=== PATIENT | female | born 1945 | race Caucasian/White ===

== ENCOUNTER 2019-08-22 13:45 | Outpatient (RCR) | payer MEDICARE, SELFPAY ==
--- NOTE | 2019-07-04 12:00 | PT.OIE ---
Current Diagnoses Mixed incontinence (07/04/19) Unspecified urinary incontinence (07/04/19) Provider Visit Care Team Role Provider Type Zulema Muhammad MD Primary Care Provider Non-Staff Specialty: Family Practice Address: [address] [place], [address] Email: BHARATH Garvin Attending Provider Non-Staff Specialty: Nursing Address: [address] [place] [address], [id number] Email: Physical Therapy Initial Evaluation PT-OP-A Visit Information Start: 07/04/19 09:45 Freq: Status: Active Protocol: Document 07/04/19 09:45 AMB (Rec: 07/04/19 10:07 AMB [email or web address]) Out-Patient Physical Therapy Visit Information Visit Information Visit Type Initial Evaluation Visit Start Time 09:47 Visit Stop Time 10:30 Total Visit Minutes 43 Visit Number 1 PT-OP-B Current Condition Start: 07/04/19 09:45 Freq: Status: Active Protocol: Document 07/04/19 10:30 AMB (Rec: 07/04/19 11:43 AMB [email or web address]) Current Condition History of Current Condition Onset Date 1.5 years ago Current Complaints leaking urine History of Current Condition Alejandra presents to physical therapy with mixed incontinence. Stress urinary incontience with leaking with sex, positional changes, sneezes, and walking and urgency with triggers like running water and walking to the bathroom. Prior Functional Status Baseline Function- ADL's Independent Baseline Function- Mobility Independent Current Functional Impairments (Reported) Functional Limitations- ADL's leaking with activity and urge Personal Factors Other Personal Factors That May Effect history of small strokes that Therapy/Recovery affect memory per patient, history of uterine cancer with intravaginal radiation and hysterectomy PT-OP-C Subjective Start: 07/04/19 09:45 Freq: Status: Active Protocol: Document 07/04/19 10:30 AMB (Rec: 07/04/19 11:43 AMB [email or web address]) Patient Questionnaires Pelvic Pain and Urgency/Frequency Patient Symptom Scale Pelvic Pain Score 16 PT-OP-I Pelvic Floor Start: 07/04/19 09:45 Freq: Status: Active Protocol: Document 07/04/19 09:45 AMB (Rec: 07/10/19 10:08 AMB [email or web address]) Pelvic Floor Assessment Urine Pelvic Floor Surgery Yes: hysterecotomy Urinary Symptoms Urge Sensation Leakage Size Medium Leakage Cause Cough Sneeze Urge Other Leakage Causes intercourse Voiding Frequency every 2 hours Nocturia 2 Urine Pad Type Panty Liner Pelvic Clock Pelvic Clock 12-3 Atrophy Pelvic Clock 3-6 Atrophy Pelvic Clock 6-9 Atrophy Pelvic Clock 9-12 Atrophy Prolapse Cystocele Grade 2 Contraction Ability Voluntary Contraction Weak Voluntary Relaxation Weak Manual Muscle Testing Left 1 Manual Muscle Testing Right 1 Manual Muscle Testing Anterior 1 Manual Muscle Testing Posterior 2 Muscle Endurance (Seconds) 4 Number of Quick Contractions In 10 3 Seconds PT-OP-T Assessment and Plan Start: 07/04/19 09:45 Freq: Status: Active Protocol: Document 07/04/19 09:45 AMB (Rec: 07/10/19 10:08 AMB [email or web address]) Physical Therapy Assessment Rehab Potential Rehabilitation Potential Good Evaluation Complexity Number of Personal Factors/Comorbidities 1-2 Number of Body Systems Impaired 1-2 Clinical Presentation at Evaluation Stable Impairments Impairments Functional Activities Strength Goals Two Impairment strength Short Term Goal (STG) Alejandra will increase her pelvic floor strength in all planes to 3/5. STG Duration 5 weeks Alf Goal (LTG) Alejandra will contract her pelvic floor for 10 seconds in standing without compensation to help avoid leaking. LTG Duration 10 weeks One Impairment incontinence Short Term Goal (STG) Alejandra will walk calmly to the bathroom without leaking. STG Duration 5 weeks Alf Goal (LTG) Alejandra will cough while standing without leaking. LTG Duration 10 weeks Assessment Summary Assessment Alejandra attends physical therapy with worsening mixed urinary incontinence symptoms for the past 6 months. 6 years ago she had uterine cancer with radiation and many years ago had 2 vaginal deliveries with episiotomy, but only developed symptoms recently. While she does show signs of cystocele, she does not complain of feeling the prolapse, but does have symptoms of both urge incontinence and stress incontinence. She was able to contract pelvic floor, but weakly. She will benefit from PT for strengthening of her pelvic floor and urge suppression techniques. Physical Therapy Plan Frequency and Duration Frequency of Treatment 1x/Week Duration of Treatment 10 weeks Plan of Care Start Date 07/04/19 Plan of Care End Date 09/12/19 Therapeutic Interventions Therapeutic Interventions Home Exercise Program Manual Therapy Neuromuscular Re-education Self-Care/Home Management Therapeutic Activities Therapeutic Exercises Modalities Biofeedback Electric Stimulation Next Visit Focus/Plan Next Note Type Treatment Note Next Visit Plan Begin with sEMG, urge reduction techniques, NMES if needed
--- NOTE | 2019-07-04 12:01 | PT.OPPOC ---
Current Diagnoses Mixed incontinence (07/04/19) Unspecified urinary incontinence (07/04/19) Provider Visit Care Team Role Provider Type Zulema Muhammad MD Primary Care Provider Non-Staff Specialty: Family Practice Address: [address] , [place], [address] Email: BHARATH Garvin Attending Provider Non-Staff Specialty: Nursing Address: [address] [place] [address], [id number] Email: Plan Of Care PT-OP-T Assessment and Plan Start: 07/04/19 09:45 Freq: Status: Active Protocol: Document 07/04/19 09:45 AMB (Rec: 07/10/19 10:08 AMB [email or web address]) Physical Therapy Assessment Rehab Potential Rehabilitation Potential Good Evaluation Complexity Number of Personal Factors/Comorbidities 1-2 Number of Body Systems Impaired 1-2 Clinical Presentation at Evaluation Stable Impairments Impairments Functional Activities Strength Goals Two Impairment strength Short Term Goal (STG) Alejandra will increase her pelvic floor strength in all planes to 3/5. STG Duration 5 weeks Fpc Goal (LTG) Alejandra will contract her pelvic floor for 10 seconds in standing without compensation to help avoid leaking. LTG Duration 10 weeks One Impairment incontinence Short Term Goal (STG) Alejandra will walk calmly to the bathroom without leaking. STG Duration 5 weeks Quality Control Chemist Goal (LTG) Alejandra will cough while standing without leaking. LTG Duration 10 weeks Assessment Summary Assessment Alejandra attends physical therapy with worsening mixed urinary incontinence symptoms for the past 6 months. 6 years ago she had uterine cancer with radiation and many years ago had 2 vaginal deliveries with episiotomy, but only developed symptoms recently. While she does show signs of cystocele, she does not complain of feeling the prolapse, but does have symptoms of both urge incontinence and stress incontinence. She was able to contract pelvic floor, but weakly. She will benefit from PT for strengthening of her pelvic floor and urge suppression techniques. Physical Therapy Plan Frequency and Duration Frequency of Treatment 1x/Week Duration of Treatment 10 weeks Plan of Care Start Date 07/04/19 Plan of Care End Date 09/12/19 Therapeutic Interventions Therapeutic Interventions Home Exercise Program Manual Therapy Neuromuscular Re-education Self-Care/Home Management Therapeutic Activities Therapeutic Exercises Modalities Biofeedback Electric Stimulation Next Visit Focus/Plan Next Note Type Treatment Note Next Visit Plan Begin with sEMG, urge reduction techniques, NMES if needed Plan of Care Dates Plan of Care Start Date 07/04/19 Plan of Care End Date 09/12/19 Please Sign and Return: I have reviewed this Plan of Care and certify that the skilled therapy services above are required to meet the patient?s needs. Physician Signature Date Printed Name and Credentials Clinical Instructor Signature Printed Name and Credentials
--- NOTE | 2019-07-11 16:37 | PT.OTN ---
Current Diagnoses Mixed incontinence (07/11/19) Unspecified urinary incontinence (07/11/19) Physical Therapy Treatment Note PT-OP-A Visit Information Start: 07/04/19 09:45 Freq: Status: Active Protocol: Document 07/11/19 09:45 AMB (Rec: 07/11/19 10:06 AMB [id number]) Out-Patient Physical Therapy Visit Information Visit Information Visit Type Treatment Note Visit Start Time 09:45 Visit Stop Time 10:25 Total Visit Minutes 40 Visit Number 2 PT-OP-B Current Condition Start: 07/04/19 09:45 Freq: Status: Active Protocol: Document 07/04/19 10:30 AMB (Rec: 07/04/19 11:43 AMB [email or web address]) Current Condition History of Current Condition Onset Date 1.5 years ago Current Complaints leaking urine History of Current Condition Alejandra presents to physical therapy with mixed incontinence. Stress urinary incontience with leaking with sex, positional changes, sneezes, and walking and urgency with triggers like running water and walking to the bathroom. Prior Functional Status Baseline Function- ADL's Independent Baseline Function- Mobility Independent Current Functional Impairments (Reported) Functional Limitations- ADL's leaking with activity and urge Personal Factors Other Personal Factors That May Effect history of small strokes that Therapy/Recovery affect memory per patient, history of uterine cancer with intravaginal radiation and hysterectomy PT-OP-C Subjective Start: 07/04/19 09:45 Freq: Status: Active Protocol: Document 07/11/19 09:45 AMB (Rec: 07/11/19 10:06 AMB [id number]) OP-PT Subjective Patient Comments Patient Comments Pt states it has been hard to do the exercises but she has been trying. PT-OP-I Pelvic Floor Start: 07/04/19 09:45 Freq: Status: Active Protocol: Document 07/04/19 09:45 AMB (Rec: 07/10/19 10:08 AMB [email or web address]) Pelvic Floor Assessment Urine Pelvic Floor Surgery Yes: hysterecotomy Urinary Symptoms Urge Sensation Leakage Size Medium Leakage Cause Cough Sneeze Urge Other Leakage Causes intercourse Voiding Frequency every 2 hours Nocturia 2 Urine Pad Type Panty Liner Pelvic Clock Pelvic Clock 12-3 Atrophy Pelvic Clock 3-6 Atrophy Pelvic Clock 6-9 Atrophy Pelvic Clock 9-12 Atrophy Prolapse Cystocele Grade 2 Contraction Ability Voluntary Contraction Weak Voluntary Relaxation Weak Manual Muscle Testing Left 1 Manual Muscle Testing Right 1 Manual Muscle Testing Anterior 1 Manual Muscle Testing Posterior 2 Muscle Endurance (Seconds) 4 Number of Quick Contractions In 10 3 Seconds PT-OP-Q Treatments Start: 07/04/19 09:45 Freq: Status: Active Protocol: Document 07/11/19 09:45 AMB (Rec: 07/12/19 16:37 AMB [email or web address]) Therapeutic Exercises Supine Exercises 1 Supine Exercise Name roll in Comments difficult Sitting Exercises 1 Sitting Exercise Name pelvic floor activation Comments without abs or gluteals Neuro Re-Education Treatment Other Activities 1 Details sEMG Comments in hooklying quick flicks and long holds PT-OP-T Assessment and Plan Start: 07/04/19 09:45 Freq: Status: Active Protocol: Document 07/11/19 09:45 AMB (Rec: 07/12/19 07:30 AMB [email or web address]) Physical Therapy Assessment Assessment Summary Assessment Alejandra did better with feedback today, either from the seat when she was sitting, or with biofeedback. Roll in was very difficult. Physical Therapy Plan Next Visit Focus/Plan Next Note Type Treatment Note Next Visit Plan Begin with sEMG, urge reduction techniques, NMES if needed
--- NOTE | 2019-07-20 09:59 | PT.OTN ---
Current Diagnoses Mixed incontinence (07/20/19) Unspecified urinary incontinence (07/20/19) Physical Therapy Treatment Note PT-OP-A Visit Information Start: 07/04/19 09:45 Freq: Status: Active Protocol: Document 07/20/19 09:15 AMB (Rec: 07/20/19 09:59 AMB [id number]) Out-Patient Physical Therapy Visit Information Visit Information Visit Type Treatment Note Visit Start Time 09:45 Visit Stop Time 10:25 Total Visit Minutes 40 Visit Number 3 PT-OP-B Current Condition Start: 07/04/19 09:45 Freq: Status: Active Protocol: Document 07/04/19 10:30 AMB (Rec: 07/04/19 11:43 AMB [email or web address]) Current Condition History of Current Condition Onset Date 1.5 years ago Current Complaints leaking urine History of Current Condition Alejandra presents to physical therapy with mixed incontinence. Stress urinary incontience with leaking with sex, positional changes, sneezes, and walking and urgency with triggers like running water and walking to the bathroom. Prior Functional Status Baseline Function- ADL's Independent Baseline Function- Mobility Independent Current Functional Impairments (Reported) Functional Limitations- ADL's leaking with activity and urge Personal Factors Other Personal Factors That May Effect history of small strokes that Therapy/Recovery affect memory per patient, history of uterine cancer with intravaginal radiation and hysterectomy PT-OP-C Subjective Start: 07/04/19 09:45 Freq: Status: Active Protocol: Document 07/20/19 09:15 AMB (Rec: 07/20/19 09:59 AMB [id number]) OP-PT Subjective Patient Comments Patient Comments Pt states she has noticed a bit of improvement, still hard to tell when she is going to leak, but if she stops what she is doing and contracts her muscles she can stop a leak while it is happening. PT-OP-I Pelvic Floor Start: 07/04/19 09:45 Freq: Status: Active Protocol: Document 07/04/19 09:45 AMB (Rec: 07/10/19 10:08 AMB [email or web address]) Pelvic Floor Assessment Urine Pelvic Floor Surgery Yes: hysterecotomy Urinary Symptoms Urge Sensation Leakage Size Medium Leakage Cause Cough,Sneeze,Urge Other Leakage Causes intercourse Voiding Frequency every 2 hours Nocturia 2 Urine Pad Type Panty Liner Pelvic Clock Pelvic Clock 12-3 Atrophy Pelvic Clock 3-6 Atrophy Pelvic Clock 6-9 Atrophy Pelvic Clock 9-12 Atrophy Prolapse Cystocele Grade 2 Contraction Ability Voluntary Contraction Weak Voluntary Relaxation Weak Manual Muscle Testing Left 1 Manual Muscle Testing Right 1 Manual Muscle Testing Anterior 1 Manual Muscle Testing Posterior 2 Muscle Endurance (Seconds) 4 Number of Quick Contractions In 10 3 Seconds PT-OP-Q Treatments Start: 07/04/19 09:45 Freq: Status: Active Protocol: Document 07/20/19 09:15 AMB (Rec: 07/20/19 09:59 AMB [id number]) Therapeutic Exercises Supine Exercises 1 Supine Exercise Name roll in Comments with NMES Sitting Exercises 1 Sitting Exercise Name pelvic floor activation Comments without abs or gluteals Neuro Re-Education Treatment Other Activities 1 Details sEMG Comments in hooklying quick flicks and long holds PT-OP-T Assessment and Plan Start: 07/04/19 09:45 Freq: Status: Active Protocol: Document 07/20/19 09:15 AMB (Rec: 07/20/19 09:59 AMB [id number]) Physical Therapy Assessment Assessment Summary Assessment Alejandra's average was 7.2, max 22 on sEMG today, better overall control, but pelvic floor does tend to fatigue. Physical Therapy Plan Next Visit Focus/Plan Next Note Type Treatment Note Next Visit Plan Begin with sEMG, urge reduction techniques, NMES if needed
--- NOTE | 2019-07-26 15:55 | PT.OTN ---
Current Diagnoses Mixed incontinence (07/26/19) Unspecified urinary incontinence (07/26/19) Physical Therapy Treatment Note PT-OP-A Visit Information Start: 07/04/19 09:45 Freq: Status: Active Protocol: Document 07/26/19 14:00 AMB (Rec: 07/26/19 14:18 AMB [id number]) Out-Patient Physical Therapy Visit Information Visit Information Visit Type Treatment Note Visit Start Time 14:00 Visit Stop Time 14:30 Total Visit Minutes 40 Visit Number 4 PT-OP-B Current Condition Start: 07/04/19 09:45 Freq: Status: Active Protocol: Document 07/04/19 10:30 AMB (Rec: 07/04/19 11:43 AMB [email or web address]) Current Condition History of Current Condition Onset Date 1.5 years ago Current Complaints leaking urine History of Current Condition Alejandra presents to physical therapy with mixed incontinence. Stress urinary incontience with leaking with sex, positional changes, sneezes, and walking and urgency with triggers like running water and walking to the bathroom. Prior Functional Status Baseline Function- ADL's Independent Baseline Function- Mobility Independent Current Functional Impairments (Reported) Functional Limitations- ADL's leaking with activity and urge Personal Factors Other Personal Factors That May Effect history of small strokes that Therapy/Recovery affect memory per patient, history of uterine cancer with intravaginal radiation and hysterectomy PT-OP-C Subjective Start: 07/04/19 09:45 Freq: Status: Active Protocol: Document 07/26/19 14:00 AMB (Rec: 07/26/19 15:55 AMB [email or web address]) OP-PT Subjective Patient Comments Patient Comments Pt states she is continuing to have difficulty with long holds, but feels she can hold leaks a bit better. PT-OP-I Pelvic Floor Start: 07/04/19 09:45 Freq: Status: Active Protocol: Document 07/04/19 09:45 AMB (Rec: 07/10/19 10:08 AMB [email or web address]) Pelvic Floor Assessment Urine Pelvic Floor Surgery Yes: hysterecotomy Urinary Symptoms Urge Sensation Leakage Size Medium Leakage Cause Cough,Sneeze,Urge Other Leakage Causes intercourse Voiding Frequency every 2 hours Nocturia 2 Urine Pad Type Panty Liner Pelvic Clock Pelvic Clock 12-3 Atrophy Pelvic Clock 3-6 Atrophy Pelvic Clock 6-9 Atrophy Pelvic Clock 9-12 Atrophy Prolapse Cystocele Grade 2 Contraction Ability Voluntary Contraction Weak Voluntary Relaxation Weak Manual Muscle Testing Left 1 Manual Muscle Testing Right 1 Manual Muscle Testing Anterior 1 Manual Muscle Testing Posterior 2 Muscle Endurance (Seconds) 4 Number of Quick Contractions In 10 3 Seconds PT-OP-Q Treatments Start: 07/04/19 09:45 Freq: Status: Active Protocol: Document 07/26/19 14:00 AMB (Rec: 07/26/19 15:55 AMB [email or web address]) Therapeutic Exercises Sitting Exercises 1 Sitting Exercise Name roll in roll out Resistance #2 tband Reps/Minutes 10 Neuro Re-Education Treatment Other Activities 1 Details sEMG Comments in hooklying quick flicks and long holds PT-OP-T Assessment and Plan Start: 07/04/19 09:45 Freq: Status: Active Protocol: Document 07/26/19 14:00 AMB (Rec: 07/26/19 14:27 AMB [id number]) Physical Therapy Assessment Assessment Summary Assessment Pt continues to fatigue quickly with long holds but did better with roll in roll out in seated. Physical Therapy Plan Next Visit Focus/Plan Next Note Type Treatment Note Next Visit Plan Progress into seated, try standing as tolerated.
--- NOTE | 2019-08-08 14:34 | PT.OTN ---
Current Diagnoses Mixed incontinence (08/08/19) Unspecified urinary incontinence (08/08/19) Physical Therapy Treatment Note PT-OP-A Visit Information Start: 07/04/19 09:45 Freq: Status: Active Protocol: Document 08/08/19 13:45 AMB (Rec: 08/08/19 14:12 AMB [id number]) Out-Patient Physical Therapy Visit Information Visit Information Visit Type Treatment Note Visit Start Time 13:45 Visit Stop Time 14:30 Total Visit Minutes 45 Visit Number 5 PT-OP-B Current Condition Start: 07/04/19 09:45 Freq: Status: Active Protocol: Document 07/04/19 10:30 AMB (Rec: 07/04/19 11:43 AMB [email or web address]) Current Condition History of Current Condition Onset Date 1.5 years ago Current Complaints leaking urine History of Current Condition Alejandra presents to physical therapy with mixed incontinence. Stress urinary incontience with leaking with sex, positional changes, sneezes, and walking and urgency with triggers like running water and walking to the bathroom. Prior Functional Status Baseline Function- ADL's Independent Baseline Function- Mobility Independent Current Functional Impairments (Reported) Functional Limitations- ADL's leaking with activity and urge Personal Factors Other Personal Factors That May Effect history of small strokes that Therapy/Recovery affect memory per patient, history of uterine cancer with intravaginal radiation and hysterectomy PT-OP-C Subjective Start: 07/04/19 09:45 Freq: Status: Active Protocol: Document 08/08/19 13:45 AMB (Rec: 08/08/19 14:12 AMB [id number]) OP-PT Subjective Patient Comments Patient Comments Pt has been practicing 3x/day, sitting down, standing and lying down. She felt the roll in roll out exercises were too complicated with her short term memory loss. PT-OP-I Pelvic Floor Start: 07/04/19 09:45 Freq: Status: Active Protocol: Document 07/04/19 09:45 AMB (Rec: 07/10/19 10:08 AMB [email or web address]) Pelvic Floor Assessment Urine Pelvic Floor Surgery Yes: hysterecotomy Urinary Symptoms Urge Sensation Leakage Size Medium Leakage Cause Cough,Sneeze,Urge Other Leakage Causes intercourse Voiding Frequency every 2 hours Nocturia 2 Urine Pad Type Panty Liner Pelvic Clock Pelvic Clock 12-3 Atrophy Pelvic Clock 3-6 Atrophy Pelvic Clock 6-9 Atrophy Pelvic Clock 9-12 Atrophy Prolapse Cystocele Grade 2 Contraction Ability Voluntary Contraction Weak Voluntary Relaxation Weak Manual Muscle Testing Left 1 Manual Muscle Testing Right 1 Manual Muscle Testing Anterior 1 Manual Muscle Testing Posterior 2 Muscle Endurance (Seconds) 4 Number of Quick Contractions In 10 3 Seconds PT-OP-Q Treatments Start: 07/04/19 09:45 Freq: Status: Active Protocol: Document 08/08/19 13:45 AMB (Rec: 08/08/19 14:34 AMB [id number]) Therapeutic Exercises Sitting Exercises 3 Sitting Exercise Name on therapy ball toe tap Comments 30x 2 Sitting Exercise Name seated january with PF Comments difficult Standing Exercises 2 Standing Exercise Name mini squat Comments with pelvic floor activation 1 Standing Exercise Name quick flicks and long holds Comments varied foot position Other Exercises 1 Other Exercise Name quadruped quick flicks and long holds PT-OP-T Assessment and Plan Start: 07/04/19 09:45 Freq: Status: Active Protocol: Document 08/08/19 13:45 AMB (Rec: 08/08/19 14:34 AMB [id number]) Physical Therapy Assessment Assessment Summary Assessment Alejandra tolerated standing exercises well, but difficulty with stabilization with moving even in seated. Physical Therapy Plan Next Visit Focus/Plan Next Note Type Treatment Note Next Visit Plan Continue to progress into standing with movement
--- NOTE | 2019-08-15 14:29 | PT.OTN ---
Current Diagnoses Mixed incontinence (08/15/19) Unspecified urinary incontinence (08/15/19) Physical Therapy Treatment Note PT-OP-A Visit Information Start: 07/04/19 09:45 Freq: Status: Active Protocol: Document 08/15/19 13:45 AMB (Rec: 08/15/19 14:07 AMB [id number]) Out-Patient Physical Therapy Visit Information Visit Information Visit Type Treatment Note Visit Start Time 13:45 Visit Stop Time 14:30 Total Visit Minutes 45 Visit Number 6 PT-OP-B Current Condition Start: 07/04/19 09:45 Freq: Status: Active Protocol: Document 07/04/19 10:30 AMB (Rec: 07/04/19 11:43 AMB [email or web address]) Current Condition History of Current Condition Onset Date 1.5 years ago Current Complaints leaking urine History of Current Condition Alejandra presents to physical therapy with mixed incontinence. Stress urinary incontience with leaking with sex, positional changes, sneezes, and walking and urgency with triggers like running water and walking to the bathroom. Prior Functional Status Baseline Function- ADL's Independent Baseline Function- Mobility Independent Current Functional Impairments (Reported) Functional Limitations- ADL's leaking with activity and urge Personal Factors Other Personal Factors That May Effect history of small strokes that Therapy/Recovery affect memory per patient, history of uterine cancer with intravaginal radiation and hysterectomy PT-OP-C Subjective Start: 07/04/19 09:45 Freq: Status: Active Protocol: Document 08/15/19 13:45 AMB (Rec: 08/15/19 14:07 AMB [id number]) OP-PT Subjective Patient Comments Patient Comments Pt reports she has been doing her exercises and noticing she has barely had any leaking. PT-OP-I Pelvic Floor Start: 07/04/19 09:45 Freq: Status: Active Protocol: Document 07/04/19 09:45 AMB (Rec: 07/10/19 10:08 AMB [email or web address]) Pelvic Floor Assessment Urine Pelvic Floor Surgery Yes: hysterecotomy Urinary Symptoms Urge Sensation Leakage Size Medium Leakage Cause Cough,Sneeze,Urge Other Leakage Causes intercourse Voiding Frequency every 2 hours Nocturia 2 Urine Pad Type Panty Liner Pelvic Clock Pelvic Clock 12-3 Atrophy Pelvic Clock 3-6 Atrophy Pelvic Clock 6-9 Atrophy Pelvic Clock 9-12 Atrophy Prolapse Cystocele Grade 2 Contraction Ability Voluntary Contraction Weak Voluntary Relaxation Weak Manual Muscle Testing Left 1 Manual Muscle Testing Right 1 Manual Muscle Testing Anterior 1 Manual Muscle Testing Posterior 2 Muscle Endurance (Seconds) 4 Number of Quick Contractions In 10 3 Seconds PT-OP-Q Treatments Start: 07/04/19 09:45 Freq: Status: Active Protocol: Document 08/15/19 13:51 AMB (Rec: 08/15/19 14:03 AMB [id number]) Therapeutic Exercises Sitting Exercises 3 Sitting Exercise Name on therapy ball toe tap Comments 30x 2 Sitting Exercise Name seated march with PF Comments difficult Standing Exercises 3 Standing Exercise Name PF contract with bicep curl and deltoid lift Resistance 4# Reps/Minutes 2x10 2 Standing Exercise Name mini squat Comments with pelvic floor activation Other Exercises 1 Other Exercise Name quadruped quick flicks and long holds PT-OP-T Assessment and Plan Start: 07/04/19 09:45 Freq: Status: Active Protocol: Document 08/15/19 13:45 AMB (Rec: 08/15/19 14:21 AMB [id number]) Physical Therapy Assessment Goals Two Impairment strength Short Term Goal (STG) Alejandra will increase her pelvic floor strength in all planes to 3/5. STG Duration 5 weeks Bobbin Cleaning Machine Operator Goal (LTG) Alejandra will contract her pelvic floor for 10 seconds in standing without compensation to help avoid leaking. PROGRESS MADE: 5 seconds LTG Duration 10 weeks One Impairment incontinence Short Term Goal (STG) Alejandra will walk calmly to the bathroom without leaking. STG Duration MET Bobbin Cleaning Machine Operator Goal (LTG) Alejandra will cough while standing without leaking. LTG Duration MET Assessment Summary Assessment Alejandra is tolerating standing pelvic floor strengthening well. Continued difficulty with long holds. Physical Therapy Plan Next Visit Focus/Plan Next Note Type Treatment Note Next Visit Plan Continue to progress into standing with movement
--- NOTE | 2019-08-22 16:00 | PT.OTN ---
Current Diagnoses Mixed incontinence (08/22/19) Unspecified urinary incontinence (08/22/19) Physical Therapy Treatment Note PT-OP-A Visit Information Start: 07/04/19 09:45 Freq: Status: Active Protocol: Document 08/22/19 13:45 AMB (Rec: 08/22/19 15:38 AMB [email or web address]) Out-Patient Physical Therapy Visit Information Visit Information Visit Type Treatment Note Visit Start Time 13:45 Visit Stop Time 14:30 Total Visit Minutes 45 Visit Number 7 PT-OP-B Current Condition Start: 07/04/19 09:45 Freq: Status: Active Protocol: Document 07/04/19 10:30 AMB (Rec: 07/04/19 11:43 AMB [email or web address]) Current Condition History of Current Condition Onset Date 1.5 years ago Current Complaints leaking urine History of Current Condition Alejandra presents to physical therapy with mixed incontinence. Stress urinary incontience with leaking with sex, positional changes, sneezes, and walking and urgency with triggers like running water and walking to the bathroom. Prior Functional Status Baseline Function- ADL's Independent Baseline Function- Mobility Independent Current Functional Impairments (Reported) Functional Limitations- ADL's leaking with activity and urge Personal Factors Other Personal Factors That May Effect history of small strokes that Therapy/Recovery affect memory per patient, history of uterine cancer with intravaginal radiation and hysterectomy PT-OP-C Subjective Start: 07/04/19 09:45 Freq: Status: Active Protocol: Document 08/22/19 13:45 AMB (Rec: 08/22/19 15:38 AMB [email or web address]) OP-PT Subjective Patient Comments Patient Comments Pt continues to be concerned about urinary frequency, but urgency and stress incontinence are much improved . PT-OP-I Pelvic Floor Start: 07/04/19 09:45 Freq: Status: Active Protocol: Document 07/04/19 09:45 AMB (Rec: 07/10/19 10:08 AMB [email or web address]) Pelvic Floor Assessment Urine Pelvic Floor Surgery Yes: hysterecotomy Urinary Symptoms Urge Sensation Leakage Size Medium Leakage Cause Cough,Sneeze,Urge Other Leakage Causes intercourse Voiding Frequency every 2 hours Nocturia 2 Urine Pad Type Panty Liner Pelvic Clock Pelvic Clock 12-3 Atrophy Pelvic Clock 3-6 Atrophy Pelvic Clock 6-9 Atrophy Pelvic Clock 9-12 Atrophy Prolapse Cystocele Grade 2 Contraction Ability Voluntary Contraction Weak Voluntary Relaxation Weak Manual Muscle Testing Left 1 Manual Muscle Testing Right 1 Manual Muscle Testing Anterior 1 Manual Muscle Testing Posterior 2 Muscle Endurance (Seconds) 4 Number of Quick Contractions In 10 3 Seconds PT-OP-Q Treatments Start: 07/04/19 09:45 Freq: Status: Active Protocol: Document 08/22/19 13:45 AMB (Rec: 08/25/19 10:33 AMB [id number]) Therapeutic Exercises Sitting Exercises 2 Sitting Exercise Name seated march with PF Comments difficult Standing Exercises 3 Standing Exercise Name PF contract with bicep curl and deltoid lift Resistance 4# Reps/Minutes 2x10 2 Standing Exercise Name mini squat Comments with pelvic floor activation 1 Standing Exercise Name quick flicks and long holds Comments varied foot position Other Exercises 1 Other Exercise Name quadruped quick flicks and long holds PT-OP-T Assessment and Plan Start: 07/04/19 09:45 Freq: Status: Active Protocol: Document 08/22/19 13:45 AMB (Rec: 08/25/19 10:21 AMB [email or web address]) Physical Therapy Assessment Goals Two Impairment strength Short Term Goal (STG) Alejandra will increase her pelvic floor strength in all planes to 3/5. STG Duration 5 weeks Penitentiary Goal (LTG) Alejandra will contract her pelvic floor for 10 seconds in standing without compensation to help avoid leaking. PROGRESS MADE: 5 seconds LTG Duration MET One Impairment incontinence Short Term Goal (STG) Alejandra will walk calmly to the bathroom without leaking. STG Duration MET Oral Surgery Technician Goal (LTG) Alejandra will cough while standing without leaking. 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 She continues to feel that frequency is a problem for her , including at night when she usually gets up 2x. We further discussed behavioral changes she could make for the nocturia. She feels she is independent with her HEP at this time and continue independently. Physical Therapy Plan Discharge Physical Therapy Discharge Reasons Goals Met
--- NOTE | 2019-08-25 10:33 | PT.OPDS ---
Current Diagnoses Mixed incontinence (08/22/19) Unspecified urinary incontinence (08/22/19) Visit Care Team Role Provider Type Zulema Muhammad MD Primary Care Provider Non-Staff Specialty: Family Practice Address: [address] , [place], [address] Email: BHARATH Garvin Attending Provider Non-Staff Specialty: Nursing Address: [address] [place] [address], [id number] Email: Visit Number Visit Number 7 Discharge Summary PT-OP-B Current Condition Start: 07/04/19 09:45 Freq: Status: Active Protocol: Document 07/04/19 10:30 AMB (Rec: 07/04/19 11:43 AMB [email or web address]) Current Condition History of Current Condition Onset Date 1.5 years ago Current Complaints leaking urine History of Current Condition Alejandra presents to physical therapy with mixed incontinence. Stress urinary incontience with leaking with sex, positional changes, sneezes, and walking and urgency with triggers like running water and walking to the bathroom. Prior Functional Status Baseline Function- ADL's Independent Baseline Function- Mobility Independent Current Functional Impairments (Reported) Functional Limitations- ADL's leaking with activity and urge Personal Factors Other Personal Factors That May Effect history of small strokes that Therapy/Recovery affect memory per patient, history of uterine cancer with intravaginal radiation and hysterectomy PT-OP-C Subjective Start: 07/04/19 09:45 Freq: Status: Active Protocol: Document 08/22/19 13:45 AMB (Rec: 08/22/19 15:38 AMB [email or web address]) OP-PT Subjective Patient Comments Patient Comments Pt continues to be concerned about urinary frequency, but urgency and stress incontinence are much improved . PT-OP-I Pelvic Floor Start: 07/04/19 09:45 Freq: Status: Active Protocol: Document 07/04/19 09:45 AMB (Rec: 07/10/19 10:08 AMB [email or web address]) Pelvic Floor Assessment Urine Pelvic Floor Surgery Yes: hysterecotomy Urinary Symptoms Urge Sensation Leakage Size Medium Leakage Cause Cough,Sneeze,Urge Other Leakage Causes intercourse Voiding Frequency every 2 hours Nocturia 2 Urine Pad Type Panty Liner Pelvic Clock Pelvic Clock 12-3 Atrophy Pelvic Clock 3-6 Atrophy Pelvic Clock 6-9 Atrophy Pelvic Clock 9-12 Atrophy Prolapse Cystocele Grade 2 Contraction Ability Voluntary Contraction Weak Voluntary Relaxation Weak Manual Muscle Testing Left 1 Manual Muscle Testing Right 1 Manual Muscle Testing Anterior 1 Manual Muscle Testing Posterior 2 Muscle Endurance (Seconds) 4 Number of Quick Contractions In 10 3 Seconds PT-OP-T Assessment and Plan Start: 07/04/19 09:45 Freq: Status: Active Protocol: Document 08/22/19 13:45 AMB (Rec: 08/25/19 10:21 AMB [email or web address]) Physical Therapy Assessment Goals Two Impairment strength Short Term Goal (STG) Alejandra will increase her pelvic floor strength in all planes to 3/5. STG Duration 5 weeks Senior Living Goal (LTG) Alejandra will contract her pelvic floor for 10 seconds in standing without compensation to help avoid leaking. PROGRESS MADE: 5 seconds LTG Duration MET One Impairment incontinence Short Term Goal (STG) Alejandra will walk calmly to the bathroom without leaking. STG Duration MET Geologic Technician Goal (LTG) Alejandra will cough while standing without leaking. 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 She continues to feel that frequency is a problem for her , including at night when she usually gets up 2x. We further discussed behavioral changes she could make for the nocturia. She feels she is independent with her HEP at this time and continue independently. Physical Therapy Plan Discharge Physical Therapy Discharge Reasons Goals Met
== END 2019-08-22 14:45 ==
LOC: PHYS 13:45
PROVIDERS: PCP Family Medicine; Visit Provider Nurse Practitioner
DX: N39.46 Mixed incontinence (principal)
CPT/HCPCS: 97110; 97112; 97161

== ENCOUNTER → 2021-01-14 06:39 | Outpatient (CLI) | payer MEDICARE, SELFPAY ==
--- NOTE | 2021-01-14 | DI.MRI.S_ITS ---
PROCEDURE: MR LUMBAR SPINE WO/W CON INDICATIONS: Rule out mets; hx uterine cancer TECHNIQUE: Noncontrast sagittal T1 spin echo and T2 fast spin echo, sagittal STIR, axial T1 and T2 fast spin echo through the lumbar spine. In cases with scoliosis, additional coronal T2 fast spin echo may be performed. After the administration of contrast, sagittal and axial T1 spin echo with fat saturation through the lumbar spine. COMPARISON: [facility], MR, MR LUMBAR SPINE WITH/WITHOUT CONTRAST, 11/30/2017, 11:52. FINDINGS: Image quality: Excellent. Alignment and curvature: Partially visualized lateral curvature of the spine, with lumbar levoscoliosis. Grade 1 anterolisthesis of L4 on L5.. Marrow: No fracture. Multilevel degenerative endplate sclerosis and spurring. Diffuse facet arthropathy. No specific marrow signal changes or enhancement to suggest metastatic disease. Small diffuse endplate Schmorl's nodes. Spinal cord: Conus medullaris terminates at the L1-L2 level. Visualized spinal cord demonstrates normal signal, without suspicious enhancement. Paraspinous soft tissues: No paravertebral masses or abnormal enhancement. T12-L1: Rznd-nn-neqbhaan canal narrowing. Partial effacement of both lateral recesses with bilaterally symmetric appearance. Mild bilateral foraminal narrowing which is unchanged. L1-L2: Mild canal narrowing. Partial effacement of both lateral recesses with asymmetric appearance, left slightly greater than right. Mild right foraminal narrowing. Moderate left foraminal stenosis with borderline nerve root compression. No interval change. L2-L3: Dorsal epidural lipomatosis. Severe canal stenosis. Partial effacement of both lateral recesses with bilaterally symmetric appearance. No interval change. Moderate bilateral foraminal narrowing with questionable nerve root compression on both sides. No interval change. L3-L4: Dorsal epidural lipomatosis. Severe canal narrowing. Partial effacement of both lateral recesses with asymmetric appearance, right slightly greater than left. No definite interval change. Severe right foraminal stenosis with nerve root compression. Mild left foraminal narrowing. No interval change L4-L5: Severe canal narrowing. Partial effacement of both lateral recesses with bilaterally symmetric appearance. Mild left foraminal narrowing. Moderate to severe right foraminal stenosis with slight nerve root compression. L5-S1: Mild dorsal epidural lipomatosis. Mild canal narrowing. Partial effacement of both lateral recesses with bilaterally symmetric appearance. Severe left foraminal stenosis with nerve root compression. Moderate right foraminal narrowing. No interval change. IMPRESSION: Overall, no definite marrow signal change or enhancement to suggest metastatic disease. Diffuse lumbar spondylosis and facet arthropathy as detailed above by spinal level. No interval change since 11/30/17. Dictated by: Pavel Urban M.D. on 01/14/2021 at 8:53 Approved by: Pavel Urban M.D. on 01/14/2021 at 9:05
== END ==
PROVIDERS: PCP Family Medicine; Referring Provider Physical Medicine & Rehabilitation Pain Medicine; Visit Provider Physical Medicine & Rehabilitation Pain Medicine
DX: M54.5 Low back pain (principal); M47.816 Spondylosis without myelopathy or radiculopathy, lumbar region; Z85.42 Personal history of malignant neoplasm of other parts of uterus
CPT/HCPCS: 72158

== ENCOUNTER → 2022-04-18 14:55 | Outpatient (CLI) | payer MEDICARE, SELFPAY ==
--- NOTE | 2022-04-18 | DI.ECHO.S_ITS ---
[facility] +---------+ : : [address] : : : : [place] : : : : [place], : : : : [place] [address] : : : : Phone: [phone] + + [phone] Echocardiogram Report + + :Name: MELVI BUSTAMANTE Study Date: 04/18/2022 Height: 66 in : :[facility] ReadingLocation: Weight: 160 lb : : Gender: Female BSA: 1.8 m2 : :: 1945 Age: 76 yrs BP: 194/92 mmHg: : Performed By: Óscar Sanches : + + Interpretation Summary The ejection fraction is estimated to be 60-65%. There is mild tricuspid regurgitation. The right ventricular systolic pressure is estimated to be at least 37 mmHg based on an estimated right atrial pressure of 3 mm Hg. There is mild aortic valve sclerosis. There is mild mitral regurgitation. Procedure: A two-dimensional transthoracic echocardiogram with color flow and Doppler was performed. The study quality was technically adequate. Comparison is made with the echocardiogram of 07/24/2021. Left Ventricle: The left ventricle is normal in size and wall thickness. Left ventricular systolic function is normal. The ejection fraction is estimated to be 60-65%. There are no focal wall motion abnormalities. Diastolic parameters suggest a pseudonormalization pattern, consistent with probable elevated filling pressures. Right Ventricle: The right ventricle is normal in size and function. Atria: Both atria are mildly dilated. The interatrial septum grossly appears intact with no obvious evidence for an atrial septal defect. Mitral Valve: There is mild mitral annular calcification. There is mild mitral regurgitation. Aortic Valve: There is mild aortic valve sclerosis. No aortic regurgitation is present. Tricuspid Valve: The tricuspid valve is normal in structure and function. There is mild tricuspid regurgitation. The right ventricular systolic pressure is estimated to be at least 37 mmHg based on an estimated right atrial pressure of 3 mm Hg. Pulmonic Valve: The pulmonic valve is normal in structure and function. There is mild pulmonic regurgitation. Great Vessels: The aortic root is normal size. The dimensions of the ascending aorta are normal. The IVC is of normal diameter and collapses greater than 50% with a sniff. This suggests a low right atrial pressure of 3 mm Hg. Pericardium/ Pleura There is no pericardial effusion. There is no pleural effusion. MMode/2D Measurements & Calculations LVIDd: 4.8 cm LVOT diam: 1.9 cm LVIDs: 3.0 cm Ao root diam: 2.8 cm IVSd: 0.96 cm Ao Arch Diam (Prox Trans): 3.2 cm LVPWd: 0.84 cm LV bettencourt. diameter/BSA (cm/m^2): 2.7 LV sys. diameter/BSA (cm/m^2): 1.6 FS: 38.7 % LA A2 area: 19.9 cm2 RA long axis: 5.5 cm LA A4 area: 23.6 cm2 RA area: 23.6 cm2 LA length (vol): 6.3 cm RA vol: 85.9 ml LA vol: 62.9 ml RA : 47.2 ml/m2 LA vol index: 34.6 ml/m2 TAPSE: 3.1 cm IVC diam: 2.1 cm Doppler Measurements & Calculations Ao V2 max: 142.8 cm/sec LVOT Max Talon: 99.8 cm/sec Ao V2 mean: 99.9 cm/sec LV V1 max P.0 mmHg Ao V2 VTI: 34.6 cm LV V1 VTI: 25.0 cm Ao max P.2 mmHg Ao mean P.4 mmHg LUKE(I,D): 2.0 cm2 MV E max talon: 104.8 cm/sec LUKE(V,D): 1.9 cm2 MV A max talon: 76.7 cm/sec LUKE indexed to BSA (cm^2/m^2): 1.1 MV E/A: 1.4 sev ratio: 0.72 Med Peak E' Talon: 5.4 cm/sec E/E' med: 19.4 Lat Peak E' Talon: 7.9 cm/sec E/E' lat: 13.3 E/e' average: 16.4 MV dec time: 0.20 sec TR max talon: 292.9 cm/sec TR max P.3 mmHg SV(LVOT): 68.3 ml Reading Physician:05:22 PM
--- NOTE | 2022-04-18 | DI.MRI.S_ITS ---
PROCEDURE: MR HEAD/BRAIN WO CON INDICATIONS: Transient cerebral ischemic attack, unspecified TECHNIQUE: Noncontrast axial T1 spin echo, axial T2 fast spin echo, sagittal and axial FLAIR, coronal T2 fast spin echo, axial gradient echo, axial diffusion and ADC through the brain. COMPARISON: [facility], MR, MR BRAIN WITHOUT CONTRAST, 08/12/2021, 16:00. FINDINGS: Image quality: Excellent. CSF Spaces: Basal cisterns are patent. No extra-axial fluid collections. Ventricles are normal in size and shape. Brain: Mild global cerebral volume loss. Severe chronic microvascular ischemic changes. No mass effect or midline shift. No restricted diffusion. 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 Orbits appear normal. Sinuses: Sinuses and mastoids are clear. IMPRESSION: No acute finding. Dictated by: Wenceslao Thapa M.D. on 04/18/2022 at 16:13 Approved by: Wenceslao Thapa M.D. on 04/18/2022 at 16:16
== END ==
PROVIDERS: PCP Family Medicine
DX: G45.9 Transient cerebral ischemic attack, unspecified (principal); I08.3 Combined rheumatic disorders of mitral, aortic and tricuspid valves
CPT/HCPCS: 70551; 93306

== ENCOUNTER → 2023-01-28 09:39 | Outpatient (CLI) | payer MEDICARE, SELFPAY ==
[2023-01-29 12:56] LABS: Candida species Negative (Negative); Gardnerella vaginalis Negative (Negative); Trichomoas vaginalis Negative (Negative)
== END ==
PROVIDERS: PCP Family Medicine; Visit Provider Specialist
DX: N90.69 Other specified hypertrophy of vulva (principal); N90.89 Other specified noninflammatory disorders of vulva and perineum
CPT/HCPCS: 87480; 87510; 87660

== ENCOUNTER → 2023-11-23 11:08 | Outpatient (CLI) | payer MEDICARE, SELFPAY | PROVIDERS: PCP Family Medicine; Referring Provider Internal Medicine; Visit Provider Internal Medicine | DX: R06.02 Shortness of breath (principal); J98.8 Other specified respiratory disorders | CPT/HCPCS: 94060; 94618; 94726; 94729 ==